=== PATIENT | female | born 1990 | race Caucasian/White ===

== ENCOUNTER 2020-12-26 13:05 | Inpatient (IN) | payer OTHER ==
[2020-12-26 14:20] VITALS: BMI 31.8
[2020-12-26 14:56] LABS: BASO % 0.6 % (0-2.0); EOS % 0.7 % (0-4.5); HEMATOCRIT 27.6 % (32.4-45.2); HEMOGLOBIN 9.4 GM/dL (10.7-15.3); LYMPH % 21.1 % (8-40); MCH 28.5 pg (25.7-33.7); MEAN CELL VOLUME 83.9 fl (80-96); MONO % 6.4 % (3.8-10.2); NEUT % 71.2 % (42.8-82.8); PLATELET COUNT 136 K/MM3 (134-434); RBC 3.29 M/mm3 (3.60-5.2); RDW 14.6 % (11.6-15.6)
[2020-12-26 15:09] LABS: INR 0.97 (0.83-1.09)
[2020-12-26 15:14] LABS: BLOOD UREA NITROGEN 8.2 mg/dL (7-18)
[2020-12-26 15:17] LABS: CREATININE 0.6 mg/dL (0.55-1.3)
[2020-12-26] MEDS ORDERED: IRON SUCROSE INJECTION 300 MG in SODIUM CHLORIDE 235 ML IVPB ONE (15:57)
[2020-12-26 16:09] LABS: HIV INTERPRETATION NEGATIVE (NEGATIVE)
[2020-12-26] MEDS: DEXTROSE 5%-LACTATED RINGERS 1,000 ML IV SCH (17:04)
[2020-12-26] MEDS: MISOPROSTOL 25 MCG TABLET (COMPOUNDED BY PHARMACY) PV SCH (17:15)
[2020-12-26] MEDS ORDERED: MISOPROSTOL 100 MCG TABLET PV SCH (18:00)
[2020-12-26] MEDS ORDERED: NIFEdipine 10 MG CAPSULE (FP) PO ONE (19:45)
[2020-12-26] MEDS ORDERED: OXYTOCIN 30 UNITS in 0.9% NS 30 UNIT/500 ML INFUS.BAG IVPB ONE (21:53)
[2020-12-26] MEDS ORDERED: OXYTOCIN 30 UNITS in 0.9% NS 30 UNIT/500 ML INFUS.BAG IVPB SCH (22:15)
[2020-12-26] MEDS: ACETAMINOPHEN 325 MG TABLET (FP) PO PRN (23:50)
[2020-12-26] MEDS ORDERED: ACETAMINOPHEN 325 MG TABLET (FP) ONE (23:50)
[2020-12-26] MEDS: LABETALOL HCL 200 MG TABLET (FP) PO SCH (23:50)
[2020-12-26] MEDS ORDERED: LABETALOL HCL 200 MG TABLET (FP) ONE (23:50)
[2020-12-27] MEDS ORDERED: PROMETHAZINE HCL 25 MG/1 ML VIAL IVPB ONE (01:00)
[2020-12-27] MEDS ORDERED: BUTORPHANOL TARTRATE 1 MG/ML VIAL IVPB ONE (01:00)
[2020-12-27] MEDS ORDERED: BUTORPHANOL TARTRATE 2 MG/ML VIAL ONE (01:02)
[2020-12-27] MEDS ORDERED: PROMETHAZINE HCL 25 MG/1 ML VIAL ONE (01:02)
[2020-12-27] MEDS ORDERED: LABETALOL HCL 5 MG/1 ML (100MG/20 ML VIAL) IVPUSH ONE (02:42)
[2020-12-27] MEDS ORDERED: MAGNESIUM SULFATE 20GM/500ML - 20 GM/500 ML INFUS.BAG IVPB SCH (02:45)
[2020-12-27] MEDS ORDERED: MAGNESIUM 4GM/H20 - 4 GM/100 ML IVPB IVPB SCH (02:45)
[2020-12-27] MEDS ORDERED: OXYTOCIN 20 UNITS in 0.9% NS 20 UNIT/1,000 ML INFUS.BAG IV ONE ×3 (03:13→16:52)
[2020-12-27] MEDS: OXYTOCIN 20 UNITS in 0.9% NS 20 UNIT/1,000 ML INFUS.BAG IV SCH ×3 (03:20→15:00)
[2020-12-27] MEDS ORDERED: LIDOCAINE HCL 1% PRESERVATIVE FREE - 30ML VIAL ONE (03:27)
[2020-12-27] MEDS ORDERED: MAGNESIUM SULFATE 20GM/500ML - 20 GM/500 ML INFUS.BAG ONE (03:39)
[2020-12-27] MEDS ORDERED: BENZOCAINE 28 GM HEMORRHOIDAL OINTMENT TP PRN (03:58)
[2020-12-27] MEDS ORDERED: WITCH HAZEL 50% (TUCKS) 40 PAD/JAR PAD TP PRN (03:58)
[2020-12-27] MEDS ORDERED: BISACODYL 10 MG SUPP.RECT RC PRN (03:58)
[2020-12-27] MEDS ORDERED: BENZOCAINE 20% 57 GM BOTTLE TP PRN (03:58)
[2020-12-27 04:59] LABS: CORD HCO3 23.7 mmHg (20-29); CORD PCO2 50.8 mmHg (30-78); CORD pH 7.286 (7.14-7.44)
[2020-12-27] MEDS ORDERED: METHYLERGONOVINE MALEATE 0.2 MG/1 ML AMP IM PRN (06:30)
[2020-12-27 06:56] LABS: BASO % 0.4 % (0-2.0); EOS % 0.1 % (0-4.5); HEMOGLOBIN 10.1 GM/dL (10.7-15.3); LYMPH % 10.2 % (8-40); MCHC 33.6 g/dl (32.0-36.0); MEAN CELL VOLUME 83.2 fl (80-96); MEAN PLT VOLUME 10.5 fl (7.5-11.1); MONO % 4.4 % (3.8-10.2); NEUT % 84.9 % (42.8-82.8); PLATELET COUNT 142 K/MM3 (134-434); RBC 3.61 M/mm3 (3.60-5.2); RDW 14.5 % (11.6-15.6); WHITE BLOOD COUNT 13.6 K/mm3 (4.0-10.0)
[2020-12-27] MEDS: LABETALOL HCL 200 MG TABLET (FP) PO SCH ×2 (09:20→21:24)
[2020-12-27] MEDS ORDERED: LABETALOL HCL 200 MG TABLET (FP) ONE (09:28)
[2020-12-27] MEDS: IBUPROFEN 600 MG TABLET (FP) PO PRN (10:35)
[2020-12-27] MEDS: ACETAMINOPHEN 325 MG TABLET (FP) PO PRN ×2 (10:35→21:24)
[2020-12-27] MEDS ORDERED: IBUPROFEN 600 MG TABLET (FP) PO ONE (10:37)
[2020-12-27] MEDS ORDERED: ACETAMINOPHEN 325 MG TABLET (FP) ONE (10:38)
[2020-12-27] MEDS: DEXTROSE 5%-LACTATED RINGERS 1,000 ML IV SCH (16:38)
[2020-12-28] MEDS: MISOPROSTOL 25 MCG TABLET (COMPOUNDED BY PHARMACY) PV SCH ×3 (07:28→19:11)
[2020-12-28 08:01] LABS: BASO % 0.3 % (0-2.0); EOS % 1.3 % (0-4.5); HEMATOCRIT 22.7 % (32.4-45.2); HEMOGLOBIN 7.7 GM/dL (10.7-15.3); MCH 28.4 pg (25.7-33.7); MCHC 33.8 g/dl (32.0-36.0); MEAN CELL VOLUME 83.8 fl (80-96); MEAN PLT VOLUME 9.4 fl (7.5-11.1); NEUT % 61.4 % (42.8-82.8); PLATELET COUNT 131 K/MM3 (134-434); RBC 2.71 M/mm3 (3.60-5.2); RDW 14.9 % (11.6-15.6); WHITE BLOOD COUNT 10.5 K/mm3 (4.0-10.0)
[2020-12-28 08:36] LABS: CALCIUM 7.4 mg/dL (8.5-10.1)
[2020-12-28 08:37] LABS: ALBUMIN 2.1 g/dl (3.4-5.0); BLOOD UREA NITROGEN 9.2 mg/dL (7-18)
[2020-12-28 08:40] LABS: CREATININE 0.4 mg/dL (0.55-1.3)
[2020-12-28 08:42] LABS: BILIRUBIN,TOTAL 0.2 mg/dL (0.2-1)
[2020-12-28] MEDS: LABETALOL HCL 200 MG TABLET (FP) PO SCH ×2 (09:25→21:47)
[2020-12-28] MEDS ORDERED: DOCUSATE SODIUM 100 MG CAPSULE (FP) PO PRN (11:06)
[2020-12-28] MEDS: FERROUS SO4 325 MG TABLET (FP) PO SCH (16:39)
[2020-12-28] MEDS: OXYTOCIN 20 UNITS in 0.9% NS 20 UNIT/1,000 ML INFUS.BAG IV SCH (19:10)
[2020-12-28] MEDS ORDERED: SENNOSIDES/DOCUSATE COMBO (SENNA PLUS) TABLET (UD) PO PRN (22:00)
[2020-12-29] MEDS: ACETAMINOPHEN 325 MG TABLET (FP) PO PRN (05:43)
[2020-12-29] MEDS: IBUPROFEN 600 MG TABLET (FP) PO PRN (05:44)
[2020-12-29] MEDS: FERROUS SO4 325 MG TABLET (FP) PO SCH (09:08)
[2020-12-29] MEDS: LABETALOL HCL 200 MG TABLET (FP) PO SCH (09:08)
[2020-12-29 09:44] VITALS: TEMP 97.7
[2020-12-29 11:35] VITALS: BP 154/97; PULSE 76
== END 2020-12-29 13:45 | disposition home or self-care (01) | DRG 560 ==
LOC: JDEL 13:05 → JLDR 13:06 → J3W 12-27 17:14
PROVIDERS: ADMIT Obstetrics & Gynecology Maternal & Fetal Medicine; ATTEND Obstetrics & Gynecology Maternal & Fetal Medicine
PROC: 10E0XZZ Delivery of Products of Conception, External Approach (ICD-10-PCS; principal; 2020-12-27)
PROC: 0HQ9XZZ Repair Perineum Skin, External Approach (ICD-10-PCS; 2020-12-27)
DX: O16.3 Unspecified maternal hypertension, third trimester (principal); Z37.0 Single live birth; O70.0 First degree perineal laceration during delivery; Z3A.38 38 weeks gestation of pregnancy
CPT/HCPCS: 36415; 36600; 59409; 80048; 80053; 82803; 85025; 85610; 85730; 86780; 86850; 86900; 86901; 87389; 88307-TC; C9803; J1756; U0003; U0005